=== PATIENT | female | born 1950 | race Caucasian/White ===

== ENCOUNTER 2024-01-04 20:14 | Emergency (ER) | payer MEDICARE ==
[~2024-01-04] VITALS: Ht 160 cm; Wt 90.7 kg
[2024-01-04 20:17] VITALS: BP_SYST 161; PULSE 95; RESP 16; TEMP 97.8; O2SAT 96
[2024-01-04] MEDS: NITROGLYCERIN 0.4 MG TAB.SUBL SL ONE (20:30)
[2024-01-04] MEDS: MORPHINE 2 MG/ML INJ. SYRINGE IVP ONE (20:30)
[2024-01-04] MEDS: ASPIRIN 81 MG TABLET(ECOTRIN) PO ONE (20:31)
[2024-01-04 20:35] LABS: BASOPHILS # (AUTO) 0.1 K/uL (0.0-0.2); BASOPHILS % (AUTO) 0.6 % (0.0-2.0); EOSINOPHILS # (AUTO) 0.5 K/uL (0.0-0.4); EOSINOPHILS % (AUTO) 4.9 % (0.0-4.0); HEMATOCRIT 35.1 % (36-48); HEMOGLOBIN 11.4 g/dL (12.0-16.0); LYMPHOCYTES % (AUTO) 21.4 % (20.5-51.5); MEAN CORPUSCULAR HEMOGLOBIN 25 pg (27-31); MEAN CORPUSCULAR HGB CONC 33 % (32-36); MEAN CORPUSCULAR VOLUME 77 fL (79.0-98.0); MONOCYTES # (AUTO) 0.8 K/uL (0.0-1.0); MONOCYTES % (AUTO) 8.6 % (1.7-9.3); NEUTROPHILS # (AUTO) 5.9 K/uL (1.8-7.7); NEUTROPHILS % (AUTO) 64.5 % (40.0-70.0); PLATELET COUNT (AUTO) 278 K/uL (130-430); RED BLOOD CELL COUNT(AUTO) 4.56 MIL/uL (4.2-6.2); RED CELL DISTRIBUTION WIDTH 17.3 % (9.0-15.0); WHITE BLOOD COUNT (AUTO) 9.2 K/uL (4.8-10.8)
[2024-01-04 20:57] LABS: ANION GAP 12 (5-15); CALCIUM 8.2 mg/dL (8.4-11.0); CARBON DIOXIDE 27 mmol/L (23-29); CHLORIDE 105 mmol/L (98-107); CREATINE KINASE, TOTAL 84 U/L (26-192); CREATININE 0.74 mg/dL (0.55-1.30); GLUCOSE 206 mg/dL (74-106); POTASSIUM 3.8 mmol/L (3.5-5.1); SODIUM SERUM 144 mmol/L (136-145); UREA NITROGEN, BLOOD 19 mg/dL (8-21)
[2024-01-04] MEDS ORDERED: HEPARIN SODIUM,PORCINE 5,000 UNITS/ML VIAL ONE (20:58)
[2024-01-04] MEDS: HEPARIN SODIUM,PORCINE 5,000 UNITS/ML VIAL IVP ONE (20:59)
[2024-01-04 21:00] VITALS: BP_SYST 167; PULSE 98; RESP 23; TEMP 98.1; O2SAT 99
[2024-01-04 21:24] LABS: PROTHROMBIN TIME 9.9 SECS (9.5-12.5)
== END 2024-01-04 20:22 | disposition short-term general hospital (02) ==
LOC: SED 20:14
DX: I21.4 Non-ST elevation (NSTEMI) myocardial infarction (principal); R07.9 Chest pain, unspecified; E11.9 Type 2 diabetes mellitus without complications; I10 Essential (primary) hypertension; Z88.1 Allergy status to other antibiotic agents; Z79.899 Other long term (current) drug therapy
CPT/HCPCS: 99291; 96374; 96375; 80048; 82550; 85025; 85610; 85730; 84484; 36415; 71045; 82948; J1644; J2270